=== PATIENT | male | born 1975 | race Hispanic/Latino ===

== ENCOUNTER 2020-08-12 22:31 | Emergency (ER) | payer BC ==
[2020-08-12 23:37] LABS: Basophils # (Auto) 0.1 K/mm3 (0.0-0.1); Basophils % (Auto) 0.6 % (0.0-1.8); Eosinophils # (Auto) 0.1 K/mm3 (0.0-0.4); Eosinophils % (Auto) 0.6 % (0.0-4.3); Hematocrit 46.9 % (35.5-45.6); Hemoglobin 16.5 gm/dl (11.8-15.2); Mean Corpuscular HGB Conc 35 % (32-34); Mean Corpuscular Volume 88 fl (84-94); Monocytes % (Auto) 9.2 % (0.0-7.3); Platelet Count 184 K/mm3 (140-440); Red Blood Count 5.35 M/mm3 (3.65-5.03); Red Cell Distribution Width 13.4 % (13.2-15.2)
[2020-08-13] LABS: Alanine Aminotransferase 26 units/L (7-56); Albumin 4.3 g/dL (3.9-5); BUN/Creatinine Ratio 18; Blood Urea Nitrogen 16 mg/dL (9-20); Calcium 9.2 mg/dL (8.4-10.2); Hemolysis Index 9
[2020-08-13] LABS: Bacteria,Urine 1+ /HPF (Negative); Bilirubin,Urine NEG (Negative); Blood,Urine NEG (Negative); Color,Urine Yellow (Yellow); Mucus,Urine 3+ /HPF; Protein,Urine <15 mg/dL mg/dL (Negative); Urobilinogen,Urine < 2.0 mg/dL (<2.0)
[2020-08-13] MEDS ORDERED: SODIUM CHLORIDE 0.9% 1000 ML 1,000 ML IV ONE (00:55)
--- NOTE | 2020-08-13 01:21 | Emergency Department Report ---
ED Abdominal Pain HPI - General Chief Complaint: Abdominal Pain Stated Complaint: ABD PAIN Time Seen by Provider: 08/13/20 01:11 Source: patient Mode of arrival: Ambulatory Limitations: No Limitations - History of Present Illness Initial Comments: 45-year-old male presents with complaints of left lower abdominal pain x3 days. Patient reports history of diverticulitis and states this pain feels similar to his diverticulitis flares. Patient reports his last flare was 3 years ago and that he is not currently following with a GI specialist. He rates his current pain as of 3/10 in severity, however states pain worsens with movement and bowel movements. He reports a fever of 101 on Wednesday that was relieved with Advil and states he has not had any further fever since. He states he had one episode of vomiting after taking his antibiotics, but denies any any hematemesis/coffee-ground emesis hematochezia/melena, constipation, diarrhea, chills, or diaphoresis. He states he was seen by his primary care doctor on Wednesday and placed on metronidazole and Cipro-reports he normally takes these for his diverticulitis flares and denies ever having any complications from diverticulitis in the past. He also reports some abdominal distention yesterday, however states it has resolved. -: Sudden - Related Data Previous Rx's Medication Instructions Recorded Last Taken Type Acetaminophen/Codeine [Tylenol 1 tab PO Q6H PRN #8 tab 08/13/20 Unknown Rx /Codeine # 3 tab] Potassium Chloride [K-Dur] 10 meq PO QDAY #3 tablet 08/13/20 Unknown Rx Allergies Allergy/AdvReac Type Severity Reaction Status Date / Time morphine Allergy Unknown Verified 08/12/20 22:57 Penicillins Allergy Unknown Verified 08/12/20 22:57 ED Review of Systems ROS: Stated complaint: ABD PAIN Other details as noted in HPI Constitutional: fever. denies: chills, diaphoresis, malaise Respiratory: denies: cough, shortness of breath Cardiovascular: chest pain (States mild substernal chest tightness-states not painful just tight) Gastrointestinal: denies: nausea, diarrhea, constipation, hematemesis, melena, hematochezia Genitourinary: denies: urgency, dysuria, frequency, hematuria, discharge Musculoskeletal: denies: back pain, arthralgia Neurological: denies: headache Hematological/Lymphatic: denies: easy bleeding, swollen glands ED Past Medical Hx - Past Medical History Previous Medical History?: Yes Additional medical history: diverticulitis - Surgical History Past Surgical History?: Yes Additional Surgical History: lower back with rods. drainage tube for diverticulits - Medications Home Medications: Home Medications Medication Instructions Recorded Confirmed Last Taken Type Acetaminophen/Codeine [Tylenol 1 tab PO Q6H PRN #8 tab 08/13/20 Unknown Rx /Codeine # 3 tab] Potassium Chloride [K-Dur] 10 meq PO QDAY #3 tablet 08/13/20 Unknown Rx ED Physical Exam - General Limitations: No Limitations General appearance: alert, in no apparent distress - Head Head exam: Present: atraumatic, normocephalic - Eye Eye exam: Present: normal appearance. Absent: scleral icterus - ENT ENT exam: Present: normal exam - Respiratory Respiratory exam: Present: normal lung sounds bilaterally. Absent: respiratory distress - Cardiovascular Cardiovascular Exam: Present: regular rate, normal rhythm, other (Radial pulses are equal bilaterally). Absent: systolic murmur, diastolic murmur, rubs, gallop - GI/Abdominal GI/Abdominal exam: Present: soft, tenderness (Left lower quadrant), normal bowel sounds. Absent: rebound, rigid - Extremities Exam Extremities exam: Present: normal inspection. Absent: calf tenderness (No swelling or tenderness noted bilaterally to the leg) - Back Exam Back exam: Present: normal inspection - Neurological Exam Neurological exam: Present: alert, oriented X3 - Psychiatric Psychiatric exam: Present: normal affect, normal mood - Skin Skin exam: Present: warm, dry, intact, normal color. Absent: rash, cyanosis, diaphoretic, pallor, ecchymosis ED Course Vital Signs 08/12/20 08/13/20 22:54 02:11 Temperature 98.6 F 98.3 F Pulse Rate 83 54 L Respiratory 16 16 Rate Blood Pressure 154/113 Blood Pressure 158/87 [Right] O2 Sat by Pulse 97 97 Oximetry ED Medical Decision Making - Lab Data Result diagrams: 08/12/20 23:13 08/12/20 23:13 Lab Results 08/12/20 08/12/20 08/12/20 Range/Units 23:13 23:13 23:33 WBC 10.9 (4.5-11.0) K/mm3 RBC 5.35 H (3.65-5.03) M/mm3 Hgb 16.5 H (11.8-15.2) gm/dl Hct 46.9 H (35.5-45.6) % MCV 88 (84-94) fl MCH 31 (28-32) pg MCHC 35 H (32-34) % RDW 13.4 (13.2-15.2) % Plt Count 184 (140-440) K/mm3 Lymph % (Auto) 18.0 (13.4-35.0) % [place] % (Auto) 9.2 H (0.0-7.3) % Eos % (Auto) 0.6 (0.0-4.3) % Baso % (Auto) 0.6 (0.0-1.8) % Lymph # (Auto) 2.0 (1.2-5.4) K/mm3 [place] # (Auto) 1.0 H (0.0-0.8) K/mm3 Eos # (Auto) 0.1 (0.0-0.4) K/mm3 Baso # (Auto) 0.1 (0.0-0.1) K/mm3 Seg Neutrophils % 71.6 H (40.0-70.0) % Seg Neutrophils # 7.8 H (1.8-7.7) K/mm3 Sodium 136 L (137-145) mmol/L Potassium 3.2 L (3.6-5.0) mmol/L Chloride 95.8 L (98-107) mmol/L Carbon Dioxide 22 (22-30) mmol/L Anion Gap 21 mmol/L BUN 16 (9-20) mg/dL Creatinine 0.9 (0.8-1.3) mg/dL Estimated GFR > 60 ml/min BUN/Creatinine Ratio 18 % Glucose 134 H (75-100) mg/dL Calcium 9.2 (8.4-10.2) mg/dL Total Bilirubin 1.10 (0.1-1.2) mg/dL AST 27 (5-40) units/L ALT 26 (7-56) units/L Alkaline Phosphatase 75 (35-129) units/L Troponin T (0.00-0.029) ng/mL Total Protein 7.2 (6.3-8.2) g/dL Albumin 4.3 (3.9-5) g/dL Albumin/Globulin Ratio 1.5 % Lipase 32 (13-60) units/L Urine Color Yellow (Yellow) Urine Turbidity Clear (Clear) Urine pH 5.0 (5.0-7.0) Ur Specific [place] 1.017 (1.003-1.030) Urine Protein <15 mg/dl (Negative) mg/dL Urine Glucose (UA) Neg (Negative) mg/dL Urine Ketones 20 (Negative) mg/dL Urine Blood Neg (Negative) Urine Nitrite Neg (Negative) Urine Bilirubin Neg (Negative) Urine Urobilinogen < 2.0 (<2.0) mg/dL Ur Leukocyte Esterase Sm (Negative) Urine WBC (Auto) 1.0 (0.0-6.0) /HPF Urine RBC (Auto) 2.0 (0.0-6.0) /HPF U Epithel Cells (Auto) < 1.0 (0-13.0) /HPF Urine Bacteria (Auto) 1+ (Negative) /HPF Urine Mucus 3+ /HPF 08/13/20 Range/Units 01:44 WBC (4.5-11.0) K/mm3 RBC (3.65-5.03) M/mm3 Hgb (11.8-15.2) gm/dl Hct (35.5-45.6) % MCV (84-94) fl MCH (28-32) pg MCHC (32-34) % RDW (13.2-15.2) % Plt Count (140-440) K/mm3 Lymph % (Auto) (13.4-35.0) % [place] % (Auto) (0.0-7.3) % Eos % (Auto) (0.0-4.3) % Baso % (Auto) (0.0-1.8) % Lymph # (Auto) (1.2-5.4) K/mm3 [place] # (Auto) (0.0-0.8) K/mm3 Eos # (Auto) (0.0-0.4) K/mm3 Baso # (Auto) (0.0-0.1) K/mm3 Seg Neutrophils % (40.0-70.0) % Seg Neutrophils # (1.8-7.7) K/mm3 Sodium (137-145) mmol/L Potassium (3.6-5.0) mmol/L Chloride (98-107) mmol/L Carbon Dioxide (22-30) mmol/L Anion Gap mmol/L BUN (9-20) mg/dL Creatinine (0.8-1.3) mg/dL Estimated GFR ml/min BUN/Creatinine Ratio % Glucose (75-100) mg/dL Calcium (8.4-10.2) mg/dL Total Bilirubin (0.1-1.2) mg/dL AST (5-40) units/L ALT (7-56) units/L Alkaline Phosphatase (35-129) units/L Troponin T < 0.010 (0.00-0.029) ng/mL Total Protein (6.3-8.2) g/dL Albumin (3.9-5) g/dL Albumin/Globulin Ratio % Lipase (13-60) units/L Urine Color (Yellow) Urine Turbidity (Clear) Urine pH (5.0-7.0) Ur Specific [place] (1.003-1.030) Urine Protein (Negative) mg/dL Urine Glucose (UA) (Negative) mg/dL Urine Ketones (Negative) mg/dL Urine Blood (Negative) Urine Nitrite (Negative) Urine Bilirubin (Negative) Urine Urobilinogen (<2.0) mg/dL Ur Leukocyte Esterase (Negative) Urine WBC (Auto) (0.0-6.0) /HPF Urine RBC (Auto) (0.0-6.0) /HPF U Epithel Cells (Auto) (0-13.0) /HPF Urine Bacteria (Auto) (Negative) /HPF Urine Mucus /HPF - EKG Data EKG shows normal: sinus rhythm Rate: bradycardia - EKG Data Interpretation: normal EKG - Radiology Data Radiology results: report reviewed Cat Scan Report Signed Patient: SUPRIYA TURNER MR #: [id number] : 1975 Acct:[id number] Age/Sex: 45 / M ADM Date: 08/12/20 Loc: ED Attending Dr: Ordering Physician: Denisse Klein MD Date of Service: 08/12/20 Procedure(s): CT abdomen pelvis w con Accession Number(s): [id number] cc: Denisse Klein MD CT ABDOMEN AND PELVIS WITH CONTRAST HISTORY: Left lower quadrant abdominal pain COMPARISON: None TECHNIQUE: Routine abdominal and pelvic CT exam performed following intravenous contrast administration. Patient received 100 mL IV Omnipaque 300. All CT scans at this location are performed using CT dose reduction for ALARA by means of automated exposure control. FINDINGS: CT ABDOMEN: Lung Bases: No significant abnormality. Liver: No significant abnormality. Biliary: No significant abnormality. Spleen: No significant abnormality. Unenlarged. Pancreas: No significant abnormality. Adrenals: No significant abnormality. Kidneys: No significant abnormality. Lymphatics: No lymphadenopathy. Vasculature: No significant abnormality. Bowel/Peritoneum: There is moderate acute diverticulitis in the proximal sigmoid colon. There is no well-defined fluid collection or abscess. Normal appendix. CT PELVIC: : No significant abnormality. Lymphatics: No lymphadenopathy. Osseous Structures: No aggressive appearing osseous lesions. Additional Findings: None IMPRESSION: 1. Moderate acute diverticulitis in the mid sigmoid colon without associated abscess or other complication at this time. Signer Name: Zeke Cleaning MD Signed: 08/13/2020 1:19 AM Workstation Name: [id number] CHEST 1 VIEW 08/13/2020 1:04 AM INDICATION / CLINICAL INFORMATION: chest pain. COMPARISON: None available. FINDINGS: SUPPORT DEVICES: None. HEART / MEDIASTINUM: No significant abnormality. LUNGS / PLEURA: No significant pulmonary or pleural abnormality. No pneumothorax. ADDITIONAL FINDINGS: No significant additional findings. IMPRESSION: 1. No acute findings. - Medical Decision Making 45-year-old male presents with complaints of left lower abdominal pain x3 days. Patient reports history of diverticulitis and states this pain feels similar to his diverticulitis flares. Patient reports his last flare was 3 years ago and that he is not currently following with a GI specialist. He rates his current pain as of 3/10 in severity, however states pain worsens with movement and bowel movements. He reports a fever of 101 on Wednesday that was relieved with Advil and states he has not had any further fever since. He states he had one episode of vomiting after taking his antibiotics, but denies any any hematemesis/coffee-ground emesis hematochezia/melena, constipation, diarrhea, chills, or diaphoresis. He states he was seen by his primary care doctor on Wednesday and placed on metronidazole and Cipro-reports he normally takes these for his diverticulitis flares and denies ever having any complications from diverticulitis in the past. He also reports some abdominal distention yesterday, however states it has resolved. CBC is normal. Mild hypokalemia noted on CMP-40 mEq of potassium p.o. given. CT shows diverticulitis without abscess or other complication. Pain is controlled with Toradol and Decadron. Recommend patient continues on Cipro and Flagyl and follow-up with GI with a 2 days. Patient also complained of substern al chest tightness that started since he is been here in the ED. he denies any shortness of breath, cough, history of DVT/PE/GA/CVA, leg pain/swelling. Father has history of heart disease. Troponin is normal. EKG shows mild bradycardia, but is otherwise normal. Chest x-ray is normal. Heart score =2. Recommend follow-up with cardiology. He is well-appearing and stable for discharge home. Strict return precautions were discussed and great detail with patient who verbalized understanding. Discussed patient with Dr. Alvarez who agrees with treatment plan. Critical care attestation.: If time is entered above; I have spent that time in minutes in the direct care o f this critically ill patient, excluding procedure time. ED Disposition Clinical Impression: Diverticulitis, Acute chest pain Disposition: DC-01 TO HOME OR SELFCARE Is pt being admited?: No Condition: Stable Instructions: Chest Pain (ED), Diverticulitis (ED) Prescriptions: Potassium Chloride [K-Dur] 10 meq PO QDAY #3 tablet Acetaminophen/Codeine [Tylenol /Codeine # 3 tab] 1 tab PO Q6H PRN #8 tab PRN Reason: Pain , Severe (7-10) Referrals: PRIMARY CARE, [Primary Care Provider] - 3-5 Days NOBLE RYDER MD [Staff Physician] - 2-3 Days [facility] [Provider Group] - 2-3 Days ED Chest pain MDM - [place] Criteria Clinical Symptoms of DVT: (0) No No Alternative Diagnosis: (0) No Immobilization of Surgery in Previous 4 Weeks: (0) No Previous DVT/PE: (0) No Hemoptysis: (0) No Malignancy: (0) No ED Chest Pain HPI - General Chief Complaint: Abdominal Pain Stated Complaint: ABD PAIN Time Seen by Provider: 08/13/20 01:11 - History of Present Illness Allergies/Adverse Reactions: Allergies morphine Allergy (Verified 08/12/20 22:57) Unknown Penicillins Allergy (Verified 08/12/20 22:57) Unknown Home Medications: Ambulatory Orders Acetaminophen/Codeine [Tylenol /Codeine # 3 tab] 1 tab PO Q6H PRN #8 tab 08/13/20 Potassium Chloride [K-Dur] 10 meq PO QDAY #3 tablet 08/13/20 - General Chief Complaint: Abdominal Pain Stated Complaint: ABD PAIN Time Seen by Provider: 08/13/20 01:11 - History of Present Illness Allergies/Adverse Reactions: Allergies morphine Allergy (Verified 08/12/20 22:57) Unknown Penicillins Allergy (Verified 08/12/20 22:57) Unknown Home Medications: Ambulatory Orders Acetaminophen/Codeine [Tylenol /Codeine # 3 tab] 1 tab PO Q6H PRN #8 tab 08/13/20 Potassium Chloride [K-Dur] 10 meq PO QDAY #3 tablet 08/13/20 ED Chest Pain HPI - General Chief Complaint: Abdominal Pain Stated Complaint: ABD PAIN Time Seen by Provider: 08/13/20 01:11 Source: patient Mode of arrival: Ambulatory Limitations: No Limitations - History of Present Illness Severity scale (0 -10): 0 - Related Data Previous Rx's Medication Instructions Recorded Last Taken Type Acetaminophen/Codeine [Tylenol 1 tab PO Q6H PRN #8 tab 08/13/20 Unknown Rx /Codeine # 3 tab] Potassium Chloride [K-Dur] 10 meq PO QDAY #3 tablet 08/13/20 Unknown Rx Allergies Allergy/AdvReac Type Severity Reaction Status Date / Time morphine Allergy Unknown Verified 08/12/20 22:57 Penicillins Allergy Unknown Verified 08/12/20 22:57 HEART Score - HEART Score History: Slightly suspicious EKG: Normal Age: 45-65 Risk factors: 1-2 risk factors Troponin: Troponin T < 0.010 ng/mL (0.00-0.029) 08/13/20 01:44 Troponin: < normal limit HEART Score: 2 - Critical Actions Critical Actions: 0-3 pts:0.9-1.7%risk of adverse cardiac event.Candidate for discharge
--- NOTE | 2020-08-13 01:24 | Cat Scan Report ---
CT ABDOMEN AND PELVIS WITH CONTRAST HISTORY: Left lower quadrant abdominal pain COMPARISON: None TECHNIQUE: Routine abdominal and pelvic CT exam performed following intravenous contrast administrat ion. Patient received 100 mL IV Omnipaque 300. All CT scans at this location are performed using CT d ose reduction for ALARA by means of automated exposure control. FINDINGS: CT ABDOMEN: Lung Bases: No significant abnormality. Liver: No significant abnormality. Biliary: No significant abnormality. Spleen: No significant abnormality. Unenlarged. Pancreas: No significant abnormality. Adrenals: No significant abnormality. Kidneys: No significant abnormality. Lymphatics: No lymphadenopathy. Vasculature: No significant abnormality. Bowel/Peritoneum: There is moderate acute diverticulitis in the proximal sigmoid colon. There is no w ell-defined fluid collection or abscess. Normal appendix. CT PELVIC: : No significant abnormality. Lymphatics: No lymphadenopathy. Osseous Structures: No aggressive appearing osseous lesions. Additional Findings: None IMPRESSION: 1. Moderate acute diverticulitis in the mid sigmoid colon without associated abscess or other complic ation at this time. Signer Name: Zeke Cleaning MD Signed: 08/13/2020 1:19 AM Workstation Name: [employer]
[2020-08-13] MEDS ORDERED: KETOROLAC 30 MG/1 ML INJ IV ONE (01:26)
--- NOTE | 2020-08-13 02:10 | XRay Report ---
CHEST 1 VIEW 08/13/2020 1:04 AM INDICATION / CLINICAL INFORMATION: chest pain. COMPARISON: None available. FINDINGS: SUPPORT DEVICES: None. HEART / MEDIASTINUM: No significant abnormality. LUNGS / PLEURA: No significant pulmonary or pleural abnormality. No pneumothorax. ADDITIONAL FINDINGS: No significant additional findings. IMPRESSION: 1. No acute findings. Signer Name: Zeke Cleaning MD Signed: 08/13/2020 2:06 AM Workstation Name: [employer]
[2020-08-13 02:13] VITALS: BP 158/87
[2020-08-13] MEDS ORDERED: POTASSIUM CHLORIDE ER 20 MEQ TAB PO ONE (02:49)
[2020-08-13] MEDS ORDERED: dexAMETHasone 20 MG/5 ML VIAL IV ONE (03:09)
== END 2020-08-13 04:00 | disposition home or self-care (01) ==
LOC: ED 22:31
DX: K57.92 Diverticulitis of intestine, part unspecified, without perforation or abscess without bleeding (principal); R07.89 Other chest pain; Z88.6 Allergy status to analgesic agent; Z79.899 Other long term (current) drug therapy; Z88.0 Allergy status to penicillin; Z98.890 Other specified postprocedural states
CPT/HCPCS: 36415; 71045; 74177; 80053; 81001; 83690; 84484; 85025; 93005; 96361; 96374; 96375; 99284; J1100; J1885; J7030; Q9967